=== PATIENT | female | born 1965 | race Caucasian/White ===

== ENCOUNTER 2016-09-29 22:32 | Emergency (ER) | payer BC, MEDICAID, MEDICARE ==
[~2016-09-29] VITALS: Ht 160 cm; Wt 51.7 kg
[2016-09-29 22:58] VITALS: BP 106/64
[2016-09-29] MEDS ORDERED: Norco 5mg/325mg tab ORAL ONE (23:00)
--- NOTE | 2016-09-29 23:01 | Emergency Room Report ---
History of Present Illness General Chief Complaint: Upper Extremity Injury Source: Patient Present Illness HPI Is a 51-year-old female who is right-hand dominant. She presents with right arm pain. She said the power at her home when out and she tripped over her Augmentin. She later on the right side. Now complaining of right arm and right shoulder pain. No loss of consciousness. Pain is 8/10. Worse with movement. Better with rest. Denies any other trauma. No head injury. Allergies: Coded Allergies: No Known Allergies (Unverified , 09/29/16) Patient History Past Medical History: see triage record, old chart reviewed Past Surgical History: none Pertinent Family History: none Social History: Denies: smoking Now: No Immunizations: other Reviewed Nursing Documentation: PMH: Agreed, PSxH: Agreed Review of Systems Eye: Denies: blurred vision, eye pain ENT: Denies: ear pain, nose congestion, throat swelling Respiratory: Denies: cough, shortness of breath Cardiovascular: Denies: chest pain, palpitations Gastrointestinal: Denies: abdominal pain, diarrhea, nausea, vomiting Musculoskeletal: Reports: joint pain, Denies: back pain Skin: Denies: rash Neurological: Denies: headache, numbness Endocrine: Denies: increased thirst, increased urine Hematologic/Lymphatic: Denies: easy bruising All Other Systems: negative except mentioned in HPI Physical Exam Vital Signs Date Time Temp Pulse Resp B/P Pulse Ox O2 Delivery O2 Flow Rate FiO2 09/29/16 22:38 99.5 75 17 106/64 97 Room Air vitals normal Sp02 EP Interpretation: reviewed, normal General Appearance: well appearing, no apparent distress, alert Head: normocephalic, atraumatic Eyes: bilateral eye EOMI, bilateral eye PERRL ENT: hearing grossly normal, normal pharynx Neck: full range of motion, supple, no meningismus Respiratory: chest non-tender, lungs clear, normal breath sounds Cardiovascular #1: regular rate, rhythm, no murmur Gastrointestinal: normal bowel sounds, non tender, no mass, no organomegaly, no bruit, non-distended Musculoskeletal: back normal, gait/station normal, other - Tender to palpation over the right shoulder and right elbow. No deformity. Sensation normal. No pain over the wrist. Psychiatric: mood/affect normal Skin: warm/dry Procedures Splinting Splinting : Consent: Verbal Location: right elbow Pre-Made Type: sling Pre-Proc Neuro Vasc Exam: normal Post-Proc Neuro Vasc Exam: normal Patient Tolerated: Well Complications: None Medical Decision Making Diagnostic Impression: Primary Impression: Sprain of right shoulder Qualified Codes: S43.401A - Unspecified sprain of right shoulder joint, initial encounter Additional Impression: Injury of right elbow Qualified Codes: S59.901A - Unspecified injury of right elbow, initial encounter ER Course Patient presents with injury to her right shoulder and elbow. Now most her pain is to the elbow area. X-ray of her elbow showed anterior sail sign. This is worse him for a subtle fracture. No shoulder fracture. She refused a splint. She agreed to a sling. She will see her orthopedic Dr. in one to 2 days. IV an x-ray. The patient. Other X-Ray Diagnostic Results Other X-Ray Diagnostic Results : X-Ray Ordered: Right elbow x-rays Date: Sep 30, 2016 Time: 00:28 EP Interpretation: Yes Findings: no fractures, no dislocation, no soft tissue swelling, other - anterior sail sign Number of Views: 3 Other Impression Right shoulder xrays: interpreted by me. 3 views. No frx, dislocation, or STS. Last Vital Signs Date Time Temp Pulse Resp B/P Pulse Ox O2 Delivery O2 Flow Rate FiO2 09/29/16 22:58 99.5 87 17 106/64 97 Room Air Status: improved Disposition: HOME, SELF-CARE Condition: Stable Scripts Hydrocodone Bit/Acetaminophen 5-325* (NORCO 5-325*) 1 Each Tablet 1 TAB ORAL Q6H Y for For Pain, #30 TAB 0 Refills Prov: EDNA MORATAYA M.D. 09/30/16 Additional Instructions: Followup with your DrLo in 2-3 days. You will need a referral to see orthopedic DrLo Return if symptom worsen. EDNA MORATAYA M.D. Sep 29, 2016 23:01
[2016-09-30 00:22] VITALS: BP 110/66
[2016-09-30] MEDS ORDERED: NORCO 5-325 TA1 EACH ORAL (00:30)
[2016-09-30 00:37] VITALS: BP 110/66
--- NOTE | 2016-09-30 10:32 | Diagnostic Imaging Report ---
Indication: Pain Findings: 3 views of the right elbow were obtained. No acute fractures, malalignment, erosions or periostitis are identified. Bone mineralization is within normal limits. Soft tissues are unremarkable. Impression: Negative examination of the elbow.
--- NOTE | 2016-09-30 10:33 | Diagnostic Imaging Report ---
Indication: Pain Findings: 3 views of the right shoulder were obtained. No acute fractures, malalignment, erosions or periostitis are identified. Bone mineralization is within normal limits. Soft tissues are unremarkable. Impression: Negative examination of the shoulder.
== END 2016-09-30 00:38 | disposition home or self-care (01) ==
LOC: EMR 23:18
DX: S43.401A Unspecified sprain of right shoulder joint, initial encounter (principal); W22.8XXA Striking against or struck by other objects, initial encounter; Y93.9 Activity, unspecified; Y92.019 Unspecified place in single-family (private) house as the place of occurrence of the external cause; Y99.9 Unspecified external cause status
CPT/HCPCS: 29240; 99284